=== PATIENT | female | born 1945 | race Caucasian/White ===

== ENCOUNTER → 2020-11-25 | Outpatient (CLI) | payer MEDICARE, BC | LOC: MAMO 10:26 | DX: Z12.31 Encounter for screening mammogram for malignant neoplasm of breast (principal) | CPT/HCPCS: 77063; 77067 ==

== ENCOUNTER → 2021-01-14 | Outpatient (CLI) | payer MEDICARE, BC | LOC: EXRD 14:30 | DX: M81.0 Age-related osteoporosis without current pathological fracture (principal) | CPT/HCPCS: 77080 ==

== ENCOUNTER → 2021-06-18 | Outpatient (CLI) | payer MEDICARE | LOC: KOH-I 14:39 | DX: R05.1 Acute cough (principal); J98.09 Other diseases of bronchus, not elsewhere classified | CPT/HCPCS: 71046 ==

== ENCOUNTER → 2021-12-03 | Outpatient (CLI) | payer MEDICARE | LOC: KOH-I 11:00 | DX: R06.02 Shortness of breath (principal) | CPT/HCPCS: 71046 ==

== ENCOUNTER 2021-12-16 13:01 | Emergency (ER) | payer MEDICARE ==
[2021-12-16 13:51] LABS: HEMOGLOBIN 11.9 gm/dl (12.3-15.3); RED BLOOD COUNT 4.03 M/UL (4.00-5.10); WHITE BLOOD COUNT 8.8 K/UL (4.5-11.0)
== END 2021-12-16 18:05 | disposition home or self-care (01) ==
LOC: ER1 13:01
PROVIDERS: Family Medicine
DX: R07.9 Chest pain, unspecified (principal); R06.02 Shortness of breath; I10 Essential (primary) hypertension; Z90.89 Acquired absence of other organs
CPT/HCPCS: 80053; 82550; 82553; 84484; 85025; 93005; 99285; Q9967

== ENCOUNTER → 2021-12-31 | Outpatient (CLI) | payer MEDICARE | LOC: ECHO 11:59 → NM 13:00 | DX: R07.9 Chest pain, unspecified (principal); R06.02 Shortness of breath | CPT/HCPCS: ECHO; 78452; 93017; 93306; A9502; J2785 ==